=== PATIENT | female | born 1975 | race African-American/Black ===

== ENCOUNTER → 2019-11-04 | Outpatient (CLI) | payer OTHER ==
[~2019-11-04] MED LIST: ABIL5 PO; ALBU90AE IH; AMLO5TAB88 PO; CEFAZOLIN SODIUM 1000MG/VIAL ONE; DEXAMETHASONE 4MG/ML 1ML VIAL ONE; ELLIPTA INH; EPHEDRINE SULFATE 50MG/ML VIAL ONE; ESMOLOL HCL 10MG/ML 10ML VIAL IV ONE; FENTANYL CITRATE/PF 50MCG/ML 2ML VIAL ONE; HYDRALAZINE 20MG/ML VIAL ONE; KETOROLAC 30MG/ML VIAL ONE; LABETALOL HCL 5MG/ML VIAL 20ML IV ONE; LIDOCAINE HCL 1% 20ML VIAL (Pyxis) INJ ONE; MIDAZOLAM HCL 2 MG/2 ML VIAL ONE; ONDANSETRON HCL 4MG/2ML INJ ONE; PROPOFOL 200MG/20ML VIAL IV ONE; ROCURONIUM BROMIDE 10MG/ML VIAL 5ML IV ONE; SODIUM CHLORIDE 0.9% 10ML VIAL ONE; SUCCINYLCHOLINE CHLORIDE 200MG/10ML IV ONE; TERBUTALINE SULFATE 1MG/ML VIAL ONE
== END | disposition home or self-care (01) ==
LOC: LAB 14:37
PROVIDERS: ATTEND Obstetrics & Gynecology
DX: Z01.818 Encounter for other preprocedural examination (principal); Z11.59 Encounter for screening for other viral diseases
CPT/HCPCS: U0003-CS

== ENCOUNTER 2019-11-08 05:41 | Day surgery (SDC) | payer OTHER ==
[~2019-11-08] VITALS: Ht 161.3 cm; Wt 74.4 kg
[2019-11-08] MEDS ORDERED: LACTATED RINGERS 1,000 ML IV SCH (06:30)
[2019-11-08 06:41] LABS: BASOPHILS % 1.4 % (0.0-2.0); HEMOGLOBIN. 12.7 g/dL (12.0-16.0); LYMPHOCYTES % 45.8 % (20.0-50.0); MEAN CORPUSCULAR HEMOGLOBIN 31.9 pg (28.0-32.0); MEAN CORPUSCULAR VOLUME 92.8 fL (81.0-99.0); MEAN PLATELET VOLUME 8.7 fl (7.4-10.4); MONOCYTES % 5.2 % (2.0-8.0); NEUTROPHILS % 41.6 % (40.0-76.0); PLATELET 288 x1000/uL (130-400); RED BLOOD CELL COUNT 3.98 mill/uL (4.2-5.4); RED CELL DISTRIBUTION WIDTH 13.2 % (11.6-14.6)
[2019-11-08 06:48] LABS: CHLORIDE 108 mEq/L (98-107)
[2019-11-08 06:51] LABS: PARTIAL THROMBOPLASTIN TIME 29.2 sec (23.4-31.0); PROTHROMBIN TIME 11.1 sec (9.6-11.0)
[2019-11-08] MEDS ORDERED: BUPIVACAINE HCL 0.5% (5MG/ML) 50ML ONE (06:58)
[2019-11-08] MEDS ORDERED: VASOPRESSIN 20 UNIT/ML 1ML ONE (06:58)
[2019-11-08 07:22] LABS: UCG SCREEN NEGATIVE
[2019-11-08 08:01] LABS: CLARITY URINE CLEAR (CLEAR); COLOR URINE DK YELLOW (YELLOW); KETONES URINE TRACE (NEGATIVE); LEUKOCYTE ESTERASE URINE NEGATIVE (NEGATIVE); NITRITE URINE NEGATIVE (NEGATIVE); OCCULT BLOOD URINE NEGATIVE (NEGATIVE); PH URINE 5.5 (4.5-8.0); PROTEIN URINE NEGATIVE (NEGATIVE); SPECIFIC GRAVITY URINE 1.027 (1.005-1.030); UROBILINOGEN URINE 0.2 E.U./dL (0.2-1.0)
[2019-11-08] MEDS ORDERED: SKIN ADHESIVE 0.7 GM EA TOP ONE (09:37)
[2019-11-08] MEDS ORDERED: ALBU90AE IH (10:38)
[2019-11-08] MEDS ORDERED: AMLO5TAB88 PO (10:38)
[2019-11-08] MEDS ORDERED: ELLIPTA INH (10:38)
[2019-11-08] MEDS ORDERED: ABIL5 PO (10:38)
[2019-11-08] MEDS ORDERED: HYDROMORPHONE HCL/PF 2MG/ML CPJ IV PRN (11:15)
[2019-11-08 11:23] VITALS: BP 133/81
== END 2019-11-08 12:30 | disposition home or self-care (01) ==
LOC: OR 05:41
PROVIDERS: ATTEND Obstetrics & Gynecology
DX: D25.9 Leiomyoma of uterus, unspecified (principal); N92.0 Excessive and frequent menstruation with regular cycle; Z79.899 Other long term (current) drug therapy; Z98.890 Other specified postprocedural states
CPT/HCPCS: 36415; 58546; 80048; 81003; 81025; 85025; 85610; 85730; 86850; 86900; 86901; J0330; J0360; J0690; J1100; J1170; J1885; J2250; J2405; J2704; J3010; J3105; J3490